=== PATIENT | male | born 1970 | race Caucasian/White ===

== ENCOUNTER 2020-12-19 20:05 | Emergency (ER) | payer OTHER ==
[~2020-12-19] VITALS: Ht 170.2 cm; Wt 101.8 kg
[2020-12-19] MEDS ORDERED: IV NORMAL SALINE 1000ML BAG 1,000 ML IV SCH (20:30)
[2020-12-19 21:14] LABS: BASO # 0.1 x10^3/uL (0.0-0.2); BASO % 1 % (0-3); EOS # 0.1 x10^3/uL (0.0-0.7); EOS % 2 % (0-3); HEMATOCRIT 41.9 % (39.0-53.0); HEMOGLOBIN 14.9 g/dL (13.0-17.5); LYMPH # 1.6 x10^3/uL (1.0-4.8); LYMPH % 29 % (24-48); MEAN CORPUSCULAR HEMOGLOBIN 34 pg (25-35); MEAN CORPUSCULAR HGB CONC 36 g/dL (31-37); MEAN CORPUSCULAR VOLUME 95 fL (79-100); MONO # 0.4 x10^3/uL (0.0-1.1); MONO % 8 % (0-9); NEUT # 3.4 x10^3/uL (1.8-7.7); NEUT % 61 % (31-73); PLATELET COUNT 206 x10^3/uL (140-400); RED CELL DISTRIBUTION WIDTH 13.1 % (11.5-14.5); WHITE BLOOD COUNT 5.6 x10^3/uL (4.0-11.0)
[2020-12-19 21:23] LABS: PROTHROMBIN TIME PATIENT 13.9 SEC (11.7-14.0)
--- NOTE | 2020-12-19 21:27 | PHYS DOC ---
Adult General Chief Complaint Chief Complaint: SUICDAL IDEATION HPI HPI Patient is a 50 year old male with a notable history of schizophrenia presenting from skilled nursing after reported episode of self injury and possible suic apurva attempt. Patient states that he cut himself in order to cut out the monitoring device that the voices in his head told him that his belly. Denies any feelings of suicidality or depression. Patient cannot tell us where or how he obtained a knife and the present of not been able to identify the weapon. Denies any dizziness, lightheadedness, headache, nausea, vomiting, chest pain or shortness of breath Review of Systems Review of Systems Constitutional: Denies fever or chills [] Eyes: Denies change in visual acuity, redness, or eye pain [] HENT: Denies nasal congestion or sore throat [] Respiratory: Denies cough or shortness of breath [] Cardiovascular: No additional information not addressed in HPI [] GI: Denies abdominal pain, nausea, vomiting, bloody stools or diarrhea [] : Denies dysuria or hematuria [] Musculoskeletal: Denies back pain or joint pain [] Integument: Denies rash or skin lesions [] Neurologic: Denies headache, focal weakness or sensory changes [] Endocrine: Denies polyuria or polydipsia [] All other systems were reviewed and found to be within normal limits, except as documented in this note. Current Medications Current Medications Current Medications Medications (Trade) Dose Ordered Sig/Thu Start Time Stop Time Status Last Admin Dose Admin Info (CONTRAST GIVEN -- Rx MONITORING) 1 each PRN DAILY PRN 12/19/20 22:00 12/21/20 21:59 Iohexol (Omnipaque 300 Mg/ml) 60 ml 1X ONCE 12/19/20 22:00 12/19/20 22:01 DC 12/19/20 22:03 60 ML Lidocaine/ Epinephrine (LIDOCAINE 2%-EPI 1:100,000 multi-dose) 20 ml 1X ONCE 12/19/20 23:00 12/19/20 23:01 DC 12/20/20 00:06 20 ML Morphine Sulfate (Morphine Sulfate) 4 mg 1X ONCE 12/19/20 23:00 12/19/20 23:01 DC 12/19/20 22:54 4 MG Sodium Chloride 1,000 ml @ 1,000 mls/hr Q1H 12/19/20 20:30 12/19/20 21:29 DC 12/19/20 20:59 1,000 MLS/HR Allergies Allergies Allergies Coded Allergies Type Severity Reaction Last Updated Verified No Known Drug Allergies 12/19/20 No Physical Exam Physical Exam Constitutional: Well developed, well nourished, no acute distress, non-toxic appearance. [] HENT: Normocephalic, atraumatic, bilateral external ears normal, oropharynx moist, no oral exudates, nose normal. [] Eyes: PERRLA, EOMI, conjunctiva normal, no discharge. [] Neck: Normal range of motion, no tenderness, supple, no stridor. [] Cardiovascular:Heart rate regular rhythm, no murmur [] Lungs & Thorax: Bilateral breath sounds clear to auscultation [] Abdomen: Bowel sounds normal, soft, no tenderness, no masses, no pulsatile masses. Approximately 13 cm superficial right upper quadrant abdominal laceration Skin: Warm, dry, no erythema, no rash. [] Back: No tenderness, no CVA tenderness. [] Extremities: No tenderness, no cyanosis, no clubbing, ROM intact, no edema. [] Neurologic: Alert and oriented X 3, normal motor function, normal sensory function, no focal deficits noted. [] Psychologic: Affect normal, judgement normal, mood normal. [] Current Patient Data Vital Signs Vital Signs Date Time Temp Pulse Resp B/P (MAP) Pulse Ox O2 Delivery O2 Flow Rate FiO2 12/20/20 00:00 97.5 70 16 139/91 (107) 97 Room Air 97.5 Lab Values Laboratory Tests Test 12/19/20 21:00 White Blood Count 5.6 x10^3/uL (4.0-11.0) Red Blood Count 4.40 x10^6/uL (4.30-5.70) Hemoglobin 14.9 g/dL (13.0-17.5) Hematocrit 41.9 % (39.0-53.0) Mean Corpuscular Volume 95 fL (79-100) Mean Corpuscular Hemoglobin 34 pg (25-35) Mean Corpuscular Hemoglobin Concent 36 g/dL (31-37) Red Cell Distribution Width 13.1 % (11.5-14.5) Platelet Count 206 x10^3/uL (140-400) Neutrophils (%) (Auto) 61 % (31-73) Lymphocytes (%) (Auto) 29 % (24-48) Monocytes (%) (Auto) 8 % (0-9) Eosinophils (%) (Auto) 2 % (0-3) Basophils (%) (Auto) 1 % (0-3) Neutrophils # (Auto) 3.4 x10^3/uL (1.8-7.7) Lymphocytes # (Auto) 1.6 x10^3/uL (1.0-4.8) Monocytes # (Auto) 0.4 x10^3/uL (0.0-1.1) Eosinophils # (Auto) 0.1 x10^3/uL (0.0-0.7) Basophils # (Auto) 0.1 x10^3/uL (0.0-0.2) Prothrombin Time 13.9 SEC (11.7-14.0) Prothrombin Time INR 1.1 (0.8-1.1) Activated Partial Thromboplast Time 29 SEC (24-38) Sodium Level 142 mmol/L (136-145) Potassium Level 4.0 mmol/L (3.5-5.1) Chloride Level 106 mmol/L (98-107) Carbon Dioxide Level 27 mmol/L (21-32) Anion Gap 9 (6-14) Blood Urea Nitrogen 10 mg/dL (8-26) Creatinine 1.3 mg/dL (0.7-1.3) Estimated GFR (Cockcroft-Gault) 58.2 Glucose Level 103 mg/dL (70-99) H Calcium Level 8.7 mg/dL (8.5-10.1) Laboratory Tests 12/19/20 21:00 Laboratory Tests 12/19/20 21:00 EKG EKG [] Radiology/Procedures Radiology/Procedures [] Course & Med Decision Making Course & Med Decision Making Pertinent Labs and Imaging studies reviewed. (See chart for details) 50M presenting with a self-inflicted wound to the right upper quadrant of the abdomen no clear evidence of abdominal perforation however will obtain a CT scan to make sure there is no significant intra-abdominal or vascular injury. Labs imaging ordered. Patient will ultimately require laceration repair. According to present staff further psychological treatment and evaluation can be performed by the present medical staff. 0051 -labs and CT scan without any significant findings. Laceration repair with interrupted simple suture. Of note it appears that the patient is a paranoid schizophrenic and has not been given his normal medication while in skilled nursing. We did have a psychiatric evaluation we have developed a care plan for him and are strongly recommending the patient be restarted on his antipsychotic medications when discharged back to the skilled nursing. Patient currently appears well and is not having any evidence of acute psychosis at this time and fully understands his actions and the subsequent ramifications Dragon Disclaimer Dragon Disclaimer This electronic medical record was generated, in whole or in part, using a voice recognition dictation system. Departure Departure Impression: Primary Impression: Laceration of abdominal wall Disposition: DC/TRF OTHER TYPE INSTITUTI (skilled nursing) Condition: GOOD Referrals: UNKNOWN PCP NAME (PCP) Patient Instructions: Laceration Care, Adult Additional Instructions: Thank you for visiting [facility]. You were seen for your abdominal laceration. This was repaired with sutures that should be removed in approximately 2 weeks. Please keep a close eye on the laceration and look for any worsening redness, yellow drainage or worsening pain around the area that can be a sign of a worsening infection. Based on the history of paranoid schizophrenia it is strongly strongly recommended that the patient be restarted on his normal dose of Abilify in order to prevent any further psychotic episodes. This medication is crucial for the wellbeing of the patient and preventing any harm to himself or others. JAREK MOORE MD Dec 19, 2020 21:27
[2020-12-19 21:30] LABS: CALCIUM 8.7 mg/dL (8.5-10.1); CREATININE 1.3 mg/dL (0.7-1.3); GFR 58.2
[2020-12-19] MEDS ORDERED: IOHEXOL 300 MG/ML 100ML VIAL. IV ONE (22:00)
[2020-12-19] MEDS ORDERED: CONTRAST GIVEN. MC PRN (22:00)
--- NOTE | 2020-12-19 22:29 | RAD ---
CT abdomen and pelvis with contrast: Reason for examination: Abdominal trauma. Laceration in the right upper quadrant. Helical images were obtained through the abdomen and pelvis with intravenous administration of 60 cc Omnipaque 300. Reconstruction was performed in sagittal and coronal planes. Exposure: One or more of the following individualized dose reduction techniques were utilized for thi s examination: 1. Automated exposure control 2. Adjustment of the mA and/or kV according to patient size 3. Use of iterative reconstruction technique. The lung bases show presence of several calcified granuloma. No infiltrates or pleural effusions are seen. The heart size is normal with no pericardial effusion. No abnormality seen at the liver, spleen, adrenal glands or pancreas. Gallbladder contains a 2 cm ernesto culus in the gallbladder neck. The gallbladder wall however does not appear thickened. The abdominal aorta and inferior vena cava show no acute abnormalities. No abnormality seen at the appendix. There is no evidence of diverticulosis or diverticulitis or colitis. The transverse colon however does carmine iate through the anterior abdominal wall in the periumbilical region without incarceration evident. T he small intestinal tract shows no abnormal dilatation or wall thickening and no obstruction. There i s a small hiatal hernia. The stomach shows no other abnormality. No abnormality seen at the duodenum. The kidneys show no renal masses, renal calculi, hydronephrosis or evidence of obstructive uropathy. No abnormality seen at the bladder. Prostate gland contains calcifications. Seminal vesicles are symm etric. No free fluid or free air is seen in the abdomen or pelvis. No acute bony abnormalities are se en. IMPRESSION: Periumbilical hernia containing transverse colon without incarceration. Small hiatal hernia. 2 cm calculus in the region of the gallbladder neck. No gallbladder wall thickening evident. Electronically signed by: Vania Wellington MD (12/19/2020 10:27 PM) APRIL
[2020-12-19] MEDS ORDERED: LIDOCAINE 2%/EPI 1:100,000 20 ML VIAL. INJ ONE (23:00)
[2020-12-19] MEDS ORDERED: MORPHINE SULFATE 4 MG/ML VIAL. IV ONE (23:00)
[2020-12-20 00:59] VITALS: BP 157/84
[2020-12-20] MEDS ORDERED: HALOPERIDOL LACTATE 5 MG/ML VIAL. IM ONE (01:00)
== END 2020-12-20 01:35 ==
LOC: EEVIPCON 20:05 → ER 20:19
DX: S31.110A Laceration without foreign body of abdominal wall, right upper quadrant without penetration into peritoneal cavity, initial encounter (principal); F20.9 Schizophrenia, unspecified; X78.8XXA Intentional self-harm by other sharp object, initial encounter; Y93.89 Activity, other specified; Y92.148 Other place in prison as the place of occurrence of the external cause; Y99.8 Other external cause status
CPT/HCPCS: 12005; 36415; 74177; 80048; 85025; 85610; 85730; 96361; 96372; 96374; 99285; J1630; J2270; J3490; J7030; Q9967